=== PATIENT | male | born 1955 | race Caucasian/White ===

== ENCOUNTER 2018-08-29 14:47 | Emergency (ER) | payer MEDICARE, OTHER ==
[~2018-08-29] VITALS: Ht 182.9 cm; Wt 96.2 kg
[2018-08-29] MEDS ORDERED: PERCOCET 5-3251 EACH PO (16:59)
== END 2018-08-29 17:06 | disposition home or self-care (01) ==
LOC: ED 14:47
DX: S63.635A Sprain of interphalangeal joint of left ring finger, initial encounter (principal); W01.0XXA Fall on same level from slipping, tripping and stumbling without subsequent striking against object, initial encounter; Y93.01 Activity, walking, marching and hiking
CPT/HCPCS: 73140; 99283

== ENCOUNTER 2019-08-29 01:43 | Emergency (ER) | payer MEDICARE, OTHER ==
[~2019-08-29] VITALS: Ht 182.9 cm; Wt 96.2 kg
[~2019-08-29 01:43] MED LIST: PERCOCET 5-3251 EACH PO
[2019-08-29] MEDS ORDERED: LOSARTAN POTASS50 MG PO (02:00)
[2019-08-29] MEDS ORDERED: HYDROCHLOROTH12.5 MG PO (02:01)
[2019-08-29] MEDS ORDERED: PERCOCET 5-3251 EACH PO (02:04)
== END 2019-08-29 04:00 | disposition home or self-care (01) ==
LOC: ED 01:43
DX: R10.9 Unspecified abdominal pain (principal); I10 Essential (primary) hypertension; Z88.7 Allergy status to serum and vaccine; Z79.899 Other long term (current) drug therapy
CPT/HCPCS: 74177; 80053; 81001; 83690; 85025; 96360; 99284-25; J7030

== ENCOUNTER 2019-11-29 04:27 | Emergency (ER) | payer MEDICARE, OTHER ==
[~2019-11-29] VITALS: Ht 182.9 cm; Wt 96.2 kg
--- OUTSIDE RECORDS SUMMARY | ~2019-11-29 | XMS | Encounter Summary ---
Demographics + + + | Address | [address] | | | [place] [address] | + + + | Home Phone | | + + + | Preferred Language | Unknown | + + + | Marital Status | | + + + | Protestant Affiliation | Unknown | + + + | Race | Unknown | + + + | Ethnic Group | Unknown | + + + Author + + + | Author | [facility] | | | and [place] | + + + | Organization | [facility] | | | and [place] | + + + | Address | Unknown | + + + | Phone | Unavailable | + + + Support + + +---------+ + | Name | Relationship | Address | Phone | + + +---------+ + | Obie Maciel | ECON | Unknown | | + + +---------+ + Care Team Providers + +------+ + | Care Mold Cutting Machine Operator Name | Role | Phone | + +------+ + | Edgard Echevarria MD | PCP | | + +------+ + Encounter Details +--------+ + + + + | Date | Type | Department | Care Team | Description | +--------+ + + + + | 08/09/ | Emergency | [facility] | | Strain of Thoracic | | 2010 | | [facility] | | Region | | | | [address] | | | | | | [place] | | | | | | [address] | | | | | | [phone] | | | +--------+ + + + + Social History + +-------+ +--------+------+ | Tobacco Use | Types | Packs/Day | Years | Date | | | | | Used | | + +-------+ +--------+------+ | Never Smoker | | | | | + +-------+ +--------+------+ + + + | Sex Assigned at | Date Recorded | | | | + + + | Not on file | | + + + + + + + | Job Start Date | Occupation | Industry | + + + + | Not on file | Not on file | Not on file | + + + + + + + + | Travel History | Travel Start | Travel End | + + + + + + | No recent travel history available. | + + documented as of this encounter Plan of Treatment Not on filedocumented as of this encounter Procedures + +--------+ + + + | Procedure Name | Priori | Date/Time | Associated Diagnosis | Comments | | | ty | | | | + +--------+ + + + | CT ABDOMEN PELVIS WO | Routin | 08/09/2011 | | Results for this | | CONTRAST | e | 4:34 AM | | procedure are in the | | | | PDT | | results section. | + +--------+ + + + documented in this encounter Results CT Abdomen Pelvis wo Contrast (08/09/2011 4:34 AM PDT) + + | Specimen | + + | | + + + + + | Impressions | Performed At | + + + | 1. Renal or ureteral calculi. 2. Nonspecific, somewhat localized | | | appearing, mesenteric fat-stranding, as described. This likely | | | reflects a reactive inflammatory process. A much less likely, | | | though possible, consideration is lymphoma. Consider obtaining a | | | limited followup examination to ensure resolution in approximately 6 | | | months. Dictated by: NILES LOVELACE Dictated: | | | 08/09/2011 04:49:34 Job: [id number] | | + + + + + + | Narrative | Performed At | + + + | NONCONTRAST-ENHANCED CT OF THE ABDOMEN AND PELVIS TECHNIQUE: | | | Using a multidetector scanner, axial images were acquired from the | | | diaphragm through the pubic symphysis. HISTORY: Left flank pain, | | | no hematuria. COMPARISON: Outside CT chest 10/26/2008. | | | FINDINGS: Within the visualized lower chest, a couple band-like | | | opacities are seen within the left lower lobe, likely reflecting areas | | | of scarring or atelectasis. Allowing for limitations of this | | | noncontrast examination, the liver, the spleen, the pancreas, the | | | gallbladder and the adrenal glands appear normal. The kidneys | | | appear relatively unremarkable. There is minimal bilateral | | | perinephric fat-stranding. No abnormal calcifications are seen within | | | either kidney or along the course of either ureter. There is no | | | pelvic caliectasis or ureterectasis. The bladder appears | | | unremarkable. An area of mild fat-stranding is seen within the | | | central and left aspects of the mesentery, surrounding a branch of | | | the superior mesenteric vein. Lymph nodes within this region are more | | | prominent than elsewhere but remain relatively small and within | | | normal limits for size. Allowing for the limitations of the lack | | | of enteric contrast, small and large bowel appear unremarkable. The | | | appendix is not visualized, but no abnormal inflammatory changes are | | | seen in the region of the cecum. | | + + + + + | Procedure Note | + + | Jayme, Rad Conversion - 05/16/2019 12:31 PM PDT NONCONTRAST-ENHANCED CT OF THE ABDOMEN | | AND PELVIS TECHNIQUE: Using a multidetector scanner, axial images were acquiredfrom the | | diaphragm through the pubic symphysis. HISTORY: Left flank pain, no hematuria. | | COMPARISON: Outside CT chest 10/26/2008. FINDINGS: Within the visualized lower chest, a | | couple band-likeopacities are seen within the left lower lobe, likely reflecting areasof | | scarring or atelectasis. Allowing for limitations of thisnoncontrast examination, the | | liver, the spleen, the pancreas, thegallbladder and the adrenal glands appear normal. | | The kidneys appear relatively unremarkable. There is minimal bilateralperinephric | | fat-stranding. No abnormal calcifications are seen withineither kidney or along the | | course of either ureter. There is no pelviccaliectasis or ureterectasis. The bladder | | appears unremarkable. An area of mild fat-stranding is seen within the central and | | leftaspects of the mesentery, surrounding a branch of the superiormesenteric vein. Lymph | | nodes within this region are more prominentthan elsewhere but remain relatively small | | and within normal limitsfor size. Allowing for the limitations of the lack of enteric | | contrast, smalland large bowel appear unremarkable. The appendix is not visualized,but | | no abnormal inflammatory changes are seen in the region of thececum. IMPRESSION: 1. | | Renal or ureteral calculi.2. Nonspecific, somewhat localized appearing, | | mesentericfat-stranding, as described. This likely reflects a reactiveinflammatory | | process. A much less likely, though possible,consideration is lymphoma. Consider | | obtaining a limited followupexamination to ensure resolution in approximately 6 months. | | Dictated by: NILES LOVELACEDictated: 08/09/2011 04:49:34 Job: [id number] | |aspects of the mesentery, surrounding a branch of the superior | |mesenteric vein. Lymph nodes within this region are more prominent | |than elsewhere but remain relatively small and within normal limits | |for size. | | | |Allowing for the limitations of the lack of enteric contrast, small | |and large bowel appear unremarkable. The appendix is not visualized, | |but no abnormal inflammatory changes are seen in the region of the | |cecum. | | | |IMPRESSION: | | | |1. Renal or ureteral calculi. | |2. Nonspecific, somewhat localized appearing, mesenteric | |fat-stranding, as described. This likely reflects a reactive | |inflammatory process. A much less likely, though possible, | |consideration is lymphoma. Consider obtaining a limited followup | |examination to ensure resolution in approximately 6 months. | | | | Dictated by: NILES LOVELACE | |Dictated: 08/09/2011 04:49:34 | | Job: [id number] | + + documented in this encounter Visit Diagnoses + + | Diagnosis | + + | Strain of thoracic region Sprain of thoracic region | + + documented in this encounter"
--- OUTSIDE RECORDS SUMMARY | ~2019-11-29 | XMS | Encounter Summary ---
Demographics + + + | Address | [address] | | | [place] [address] | + + + | Home Phone | | + + + | Preferred Language | Unknown | + + + | Marital Status | | + + + | Anglican Affiliation | Unknown | + + + | Race | Unknown | + + + | Ethnic Group | Unknown | + + + Author + + + | Author | [facility] | | | and [place] | + + + | Organization | [facility] | | | and [place] [...] Team Providers + +------+ + | Care Wood Borer Name | Role | Phone | + +------+ + | Edgard Echevarria MD | PCP | | + +------+ + Encounter Details +--------+ + + + + | Date | Type | Department | Care Team | Description | +--------+ + + + + | 08/28/ | Hospital | [facility] | Conversion | Positive PPD | | 2010 | Encounter | XRAY [address] | Transaction, | | | | | [place], [place] | Provider Unknown | | | | | [address] | [phone] | | | | | [phone] | | | +--------+ + + + [...] | + +--------+ + + + | XR CHEST 2 VIEWS | Routin | 08/28/2011 | | Results for this | | | e | 2:31 PM | | procedure are in the | | | | PDT | | results section. | + +--------+ + + + documented in this encounter Results XR Chest 2 Vws (08/28/2011 2:31 PM PDT) + + | Specimen | + + | | + + + + + | Impressions | Performed At | + + + | No evidence of chronic or active TB. Dictated by: | | | MERRICK DOOLEY Dictated: 08/28/2011 14:38:41 Job: [id number] | | + + + + + + | Narrative | Performed At | + + + | EXAMINATION: Chest, PA and lateral views DATE: Aug 28, 2011 | | | 2:31:00 PM. HISTORY: Positive PPD COMPARISONS: CT chest dated | | | 10/26/2008. FINDINGS: Normal lung volumes. Lungs clear. | | | Paratracheal and perihilar contours within normal limits. No | | | suspicious pulmonary nodularity or consolidation. Thoracic spine | | | osteopenia without compression fracture. | | + + + + + | Procedure Note | + + | Jayme, Rad Conversion - 05/16/2019 12:31 PM PDT EXAMINATION: Chest, PA and lateral | | views DATE: Aug 28, 2011 2:31:00 PM. HISTORY: Positive PPD COMPARISONS: CT chest dated | | 10/26/2008. FINDINGS: Normal lung volumes. Lungs clear. Paratracheal and perihilar | | contourswithin normal limits. No suspicious pulmonary nodularity orconsolidation. | | Thoracic spine osteopenia without compression fracture. IMPRESSION: No evidence of | | chronic or active TB. Dictated by: MERRICK DOOLEYDictated: 08/28/2011 14:38:41 | | Job: [id number] | | | |FINDINGS: | | | |Normal lung volumes. Lungs clear. Paratracheal and perihilar contours | |within normal limits. No suspicious pulmonary nodularity or | |consolidation. Thoracic spine osteopenia without compression fracture. | | | |IMPRESSION: | | No evidence of chronic or active TB. 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
--- OUTSIDE RECORDS SUMMARY | ~2019-11-29 | XMS | Encounter Summary ---
Demographics + + + | Address | [address] | | | [place] [address] | + + + | Home Phone | | + + + | Preferred Language | Unknown | + + + | Marital Status | | + + + | Latter-Day Affiliation | Unknown | + + + | Race | Unknown | + + + | Ethnic Group | Unknown | + + + Author + + + | Author | [facility] | | | and [place] | + + + | Organization | [facility] | | | and [place] | [...] Team Providers + +------+ + | Care Client Relationship Executive Name | Role | Phone | + +------+ + | Edgard Echevarria MD | PCP | | + +------+ + Encounter Details +--------+ + + + + | Date | Type | Department | Care Team | Description | +--------+ + + + + | 02/14/ | Hospital | [facility] | Conversion | MS (Multiple | | 2008 | Encounter | [facility] | Transaction, | Sclerosis) (HCC) | | | | [place], [place] | Provider Unknown | | | | | [address] | [phone] | | | | | [phone] | | | +--------+ + + + + Social History + +-------+ +--------+------+ | Tobacco Use | Types | Packs/Day | Years | Date | | | | | Used | | + +-------+ +--------+------+ | Never Assessed | | | | | + +-------+ [...] | + +--------+ + + + | MRI CERVICAL SPINE W | Routin | 02/14/2009 | | Results for this | | WO CONTRAST | e | 6:27 PM | | procedure are in the | | | | PDT | | results section. | + +--------+ + + + documented in this encounter Results MRI Cervical Spine w wo Contrast (02/14/2009 6:27 PM PDT) + + | Specimen | + + | | + + + + + | Impressions | Performed At | + + + | Degenerative changes and minimal listhesis as described, findings | | | are most significant at C4-5 and C5-6. Based on imaging findings, | | | correlation with a left C5 and bilateral C6 radiculopathy is | | | suggested. Dictated by: MABLE VACA Dictated: 02/15/2009 | | | 09:47:40 Job: [id number] | | + + + + + + | Narrative | Performed At | + + + | MRI OF THE CERVICAL SPINE WITH AND WITHOUT CONTRAST: Clinical | | | History: Paresthesias, numbness, headache, "feels like a tornado". | | | Comparison: No prior imaging of the cervical spine. | | | Technique: Images are obtained at 3 Ade. Multiple sequences are | | | acquired: sagittal T2, sagittal T1 fat saturated, sagittal T2 fat | | | saturated, axial T1 FLAIR post contrast, sagittal T1 FLAIR, axial 2D | | | merge, sagittal T1 FLAIR. Findings: Evaluation of alignment | | | demonstrates minimal, approximately 1 mm of retrolisthesis of C4 on | | | C5, correlation with flexion and extension views could be considered. | | | C0-C1, C1-2 and dens basion alignment are normal. Evaluation | | | of the soft tissues of the neck show no adenopathy or masses. No | | | pathologic marrow replacement is identified. No abnormal | | | enhancement is identified on post contrast imaging. Findings by | | | Disc Level: C2-3: Mild disc height loss and disc desiccation | | | without significant canal or foraminal stenosis. C3-4: Mild | | | disc height loss and disc desiccation, no significant canal or | | | foraminal stenosis. C4-5: Mild disc height loss and disc | | | desiccation associated with mild right and mild to moderate left | | | sided foraminal stenosis. Correlation with a left C5 radiculopathy | | | is suggested. There is mild canal stenosis related to central disc | | | and osteophyte complex. C5-6: Central disc and osteophyte | | | complex and bilateral uncovertebral joint hypertrophy and facet | | | arthropathy overall produces mild to moderate canal stenosis and at | | | least moderate bilateral foraminal stenosis. Correlation with a | | | bilateral C6 radiculopathy is suggested. C6-7: Central disc and | | | osteophyte complex mildly narrows the canal, there is minimal to mild | | | bilateral foraminal stenosis associated with bilateral facet | | | arthropathy. C7-T1: No significant canal or foraminal stenosis. | | | | | + + + + + | Procedure Note | + + | Jayme, Rad Conversion - 05/16/2019 9:57 PM PDT MRI OF THE CERVICAL SPINE WITH AND | | WITHOUT CONTRAST: Clinical History: Paresthesias, numbness, headache, "feels like | | atornado". Comparison: No prior imaging of the cervical spine. Technique: Images are | | obtained at 3 Ade. Multiple sequences areacquired: sagittal T2, sagittal T1 fat | | saturated, sagittal T2 fatsaturated, axial T1 FLAIR post contrast, sagittal T1 FLAIR, | | axial 2Dmerge, sagittal T1 FLAIR. Findings: Evaluation of alignment demonstrates | | minimal, approximately 1 mm ofretrolisthesis of C4 on C5, correlation with flexion and | | extensionviews could be considered. C0-C1, C1-2 and dens basion alignment are normal. | | Evaluation of the soft tissues of the neck show no adenopathy ormasses. No pathologic | | marrow replacement is identified. No abnormalenhancement is identified on post contrast | | imaging. Findings by Disc Level: C2-3: Mild disc height loss and disc desiccation | | without significantcanal or foraminal stenosis. C3-4: Mild disc height loss and disc | | desiccation, no significantcanal or foraminal stenosis. C4-5: Mild disc height loss and | | disc desiccation associated with mildright and mild to moderate left sided foraminal | | stenosis. Correlationwith a left C5 radiculopathy is suggested. There is mild | | canalstenosis related to central disc and osteophyte complex. C5-6: Central disc and | | osteophyte complex and bilateral uncovertebraljoint hypertrophy and facet arthropathy | | overall produces mild tomoderate canal stenosis and at least moderate bilateral | | foraminalstenosis. Correlation with a bilateral C6 radiculopathy is suggested. C6-7: | | Central disc and osteophyte complex mildly narrows the canal,there is minimal to mild | | bilateral foraminal stenosis associated withbilateral facet arthropathy. C7-T1: No | | significant canal or foraminal stenosis. IMPRESSION: Degenerative changes and minimal | | listhesis as described, findings aremost significant at C4-5 and C5-6. Based on imaging | | findings,correlation with a left C5 and bilateral C6 radiculopathy issuggested. | | Dictated by: MABLE ALEJANDROHDictated: 02/15/2009 09:47:40 Job: [id number] | | | |C2-3: Mild disc height loss and disc desiccation without significant | |canal or foraminal stenosis. | | | |C3-4: Mild disc height loss and disc desiccation, no significant | |canal or foraminal stenosis. | | | |C4-5: Mild disc height loss and disc desiccation associated with mild | |right and mild to moderate left sided foraminal stenosis. Correlation | |with a left C5 radiculopathy is suggested. There is mild canal | |stenosis related to central disc and osteophyte complex. | | | |C5-6: Central disc and osteophyte complex and bilateral uncovertebral | |joint hypertrophy and facet arthropathy overall produces mild to | |moderate canal stenosis and at least moderate bilateral foraminal | |stenosis. Correlation with a bilateral C6 radiculopathy is suggested. | | | |C6-7: Central disc and osteophyte complex mildly narrows the canal, | |there is minimal to mild bilateral foraminal stenosis associated with | |bilateral facet arthropathy. | | | |C7-T1: No significant canal or foraminal stenosis. | | | |IMPRESSION: | |Degenerative changes and minimal listhesis as described, findings are | |most significant at C4-5 and C5-6. Based on imaging findings, | |correlation with a left C5 and bilateral C6 radiculopathy is | |suggested. | | Dictated by: MABLE VACA | |Dictated: 02/15/2009 09:47:40 | | Job: [id number] | + + documented in this encounter Visit Diagnoses + + | Diagnosis | + + | MS (multiple sclerosis) (HCC) Multiple sclerosis | + + documented in this encounter
--- OUTSIDE RECORDS SUMMARY | ~2019-11-29 | XMS | Encounter Summary ---
Demographics + + + | Address | [address] | | | [place] [address] | + + + | Home Phone | | + + + | Preferred Language | Unknown | + + + | Marital Status | | + + + | Anglican Affiliation | Unknown | + + + | Race | Unknown | + + + | Ethnic Group | Unknown | + + + Author + + + | Author | [facility] | | | and [place] | + + + | Organization | [facility] | | | and [place] | [...] Team Providers + +------+ + | Care Private Wealth Advisor Name | Role | Phone | + +------+ + | Edgard Echevarria MD | PCP | | + +------+ + Encounter Details +--------+ + + + + | Date | Type | Department | Care Team | Description | +--------+ + + + + | 12/30/ | Hospital | [facility] | Conversion | Seizures (HCC) | | 2008 | Encounter | [facility] | Transaction, | | | | | [facility] | Provider Unknown | | | | | [address] | | | | | | [place], [place] | (Fax) | | | | | [address] | | | | | | [phone] | | | +--------+ + + + [...] Not on filedocumented as of this encounter Visit Diagnoses + + | Diagnosis | + + | Seizures (HCC) Other convulsions | + + documented in this encounter"
--- OUTSIDE RECORDS SUMMARY | ~2019-11-29 | XMS | Encounter Summary ---
Demographics + + + | Address | [address] | | | [place] [address] | + + + | Home Phone | | + + + | Preferred Language | Unknown | + + + | Marital Status | | + + + | Denominational Affiliation | Unknown | + + + | Race | Unknown | + + + | Ethnic Group | Unknown | + + + Author + + + | Author | [facility] | | | and [place] | + + + | Organization | [facility] | | | and [place] [...] Team Providers + +------+ + | Care General Assignment Reporter Name | Role | Phone | + +------+ + | Edgard Echevarria MD | PCP | | + +------+ + Encounter Details +--------+ + + + + | Date | Type | Department | Care Team | Description | +--------+ + + + + | 11/19/ | [facility] | [facility] | Conversion | Personal History of | | 2007 | Encounter | MEDICAL PROCEDURES | Transaction, | Colonic Polyps | | | | [address] | Provider Unknown | | | | | [place], [place] | [phone] | | | | | [address] | | | | | | [phone] | | | +--------+ + + + [...] + | Diagnosis | + + | Personal history of colonic polyps | + + documented in this encounter"
--- OUTSIDE RECORDS SUMMARY | ~2019-11-29 | XMS | Encounter Summary ---
Demographics + + + | Address | [address] | | | [place] [address] | + + + | Home Phone | | + + + | Preferred Language | Unknown | + + + | Marital Status | | + + + | Christian Affiliation | Unknown | + + + | Race | Unknown | + + + | Ethnic Group | Unknown | + + + Author + + + | Author | [facility] | | | and [place] | + + + | Organization | [facility] | | | and [place] [...] Team Providers + +------+ + | Care Molder Operator Name | Role | Phone | + +------+ + PCP | Unavailable | + +------+ + Encounter Details +--------+ + + + + | Date | Type | Department | Care Team | Description | +--------+ + + + + | 01/08/ | Emergency | [facility] | [facility] | | | 1998 | | [facility] | [facility] [address] | | | | | [address] | [place] | | | | | [place] | [address] | | | | | [address] | [phone] | | | | | [phone] | | | +--------+ + + + [...] filedocumented as of this encounter Visit Diagnoses Not on filedocumented in this encounter"
--- OUTSIDE RECORDS SUMMARY | ~2019-11-29 | XMS | Encounter Summary ---
Demographics + + + | Address | [address] | | | [place] [address] | + + + | Home Phone | | + + + | Preferred Language | Unknown | + + + | Marital Status | | + + + | Jehovah'S Witness Affiliation | Unknown | + + + | Race | Unknown | + + + | Ethnic Group | Unknown | + + + Author + + + | Author | [facility] | | | and [place] | + + + | Organization | [facility] | | | and [place] [...] Team Providers + +------+ + | Care Director Emergency Department Name | Role | Phone | + +------+ + | Edgard Echevarria MD | PCP | | + +------+ + Encounter Details +--------+ + + + + | Date | Type | Department | Care Team | Description | +--------+ + + + + | 06/23/ | Hospital | [facility] | [place], | | | 2002 | Encounter | [facility] | | | | | | GENERIC CONV [address] | | | | | | [place], | | | | | | [place] [address] | | | | | | [phone] | | | +--------+ + + + [...]
--- OUTSIDE RECORDS SUMMARY | ~2019-11-29 | XMS | Encounter Summary ---
Demographics + + + | Address | [address] | | | [place] [address] | + + + | Home Phone | | + + + | Preferred Language | Unknown | + + + | Marital Status | | + + + | Buddhist Affiliation | Unknown | + + + | Race | Unknown | + + + | Ethnic Group | Unknown | + + + Author + + + | Author | [facility] | | | and [place]un[place] | + + + | Organization | [facility] | | [...] Team Providers + +------+ + | Care Hat Blocker Name | Role | Phone | + +------+ + | Edgard Echevarria MD | PCP | | + +------+ + Encounter Details +--------+ + + + + | Date | Type | Department | Care Team | Description | +--------+ + + + + | 08/17/ | [facility] | [facility] | Emeka Salamanca MD | Orchalgia; | | 2019 | Encounter | ULTRASOUND [address] | [address] | Spermatocele | | | | [address] | [address] [place], | | | | | [place] | [place] [address] | | | | | [address] | | | | | | [phone] | (Fax) | | +--------+ + + + + [...] + + documented as of this encounter Medications at Time of Discharge + + + +---------+--------+ + | Medication | Sig | Dispensed | Refills | Start | End Date | | | | | | Date | | + + + +---------+--------+ + | | Take 12.5 mg by | | 0 | | | | hydroCHLOROthiazide | mouth Daily. | | | | | | (HYDRODIURIL) 12.5 | | | | | | | MG tablet | | | | | | + + + +---------+--------+ + | losartan (COZAAR) | Take 50 mg by mouth | | 0 | | | | 50 mg tablet | Daily. | | | | | + + + +---------+--------+ + documented as of this encounter Plan of Treatment Not on filedocumented as of this encounter Procedures + +--------+ + + + | Procedure Name | Priori | Date/Time | Associated Diagnosis | Comments | | | ty | | | | + +--------+ + + + | US SCROTUM AND | Routin | 08/17/2019 | Orchalgia | Results for this | | TESTICLES | e | 11:45 AM | Spermatocele | procedure are in the | | | | PDT | | results section. | + +--------+ + + + documented in this encounter Results US Scrotum And Testicles (08/17/2019 11:45 AM PDT) + + | Specimen | + + | | + + + + + | Narrative | Performed At | + + + | ULTRASOUND SCROTUM CLINICAL INFORMATION: Right scrotal | [facility] | | swelling present for 2.5 years. 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 COMPARISON: None PROCEDURE: Evaluation | | | of the scrotum. FINDINGS: Right testicle: 5.3 x 2.4 x 3.0 cm. | | | Small area of tubular ectasia of the rete testes.. 1.5 x 1.9 x 2.0 | | | cm right epididymal head cyst. Tubular cystic areas in the right | | | epididymis body. Small right hydrocele Left testicle: 4.7 x 2.3 x | | | 2.9 cm. No testicular mass. Left epididymis appears normal. No | | | extra-testicular mass or pathologic fluid collection. Normal color | | | Doppler flow is present in both testicles IMPRESSION: 2 cm right | | | epididymal head cyst/spermatocele. Normal testicles | | | Signed by: Prudencio Kruger Leslie Sign Date/Time: 08/17/2019 12:35 PM | | | | | + + + + + | Procedure Note | + + | Jayme, Rad Results In - 08/17/2019 12:39 PM PDT | | ULTRASOUND SCROTUM | | | | CLINICAL INFORMATION: | | Right scrotal swelling present for 2.5 years. Status post 3 times | | bilateral spermatocele repair. | | | | COMPARISON: | | None | | | | PROCEDURE: | | Evaluation of the scrotum. | | | | FINDINGS: | | Right testicle: 5.3 x 2.4 x 3.0 cm. Small area of tubular ectasia of | | the rete testes.. 1.5 x 1.9 x 2.0 cm right epididymal head cyst. | | Tubular cystic areas in the right epididymis body. Small right | | hydrocele | | Left testicle: 4.7 x 2.3 x 2.9 cm. No testicular mass. Left epididymis | | appears normal. No extra-testicular mass or pathologic fluid collection. | | | | Normal color Doppler flow is present in both testicles | | | | IMPRESSION: | | 2 cm right epididymal head cyst/spermatocele. Normal testicles | | | | | | | | Signed by: Prudencio Kruger Leslie | | Sign Date/Time: 08/17/2019 12:35 PM | + + + +---------+ + + | Performing | Address | City/State/Zipcode | Phone Number | | Organization | | | | + +---------+ + + | [facility] | | | | + +---------+ + + documented in this encounter Visit Diagnoses + + | Diagnosis | + + | Orchalgia Unspecified disorder of male genital organs | + + | Spermatocele | + + documented in this encounter"
--- OUTSIDE RECORDS SUMMARY | ~2019-11-29 | XMS | Encounter Summary ---
Demographics + + + | Address | [address] | | | [place] [address] | + + + | Home Phone | | + + + | Preferred Language | Unknown | + + + | Marital Status | | + + + | Buddhism Affiliation | Unknown | + + + | Race | Unknown | + + + | Ethnic Group | Unknown | + + + Author + + + | Author | [facility] | | | and [place]un[place] | + + + | Organization | [facility] | | | and [...] Team Providers + +------+ + | Care Digital Solutions Architect Name | Role | Phone | + [...] [place], | | | | | | [place] [address] | | | | | | [phone] | | | +--------+ + + + [...]
--- OUTSIDE RECORDS SUMMARY | ~2019-11-29 | XMS | Encounter Summary ---
Demographics + + + | Address | [address] | | | [place] [address] | + + + | Home Phone | | + + + | Preferred Language | Unknown | + + + | Marital Status | | + + + | Mormonism Affiliation | Unknown | + + + | Race | Unknown | + + + | Ethnic Group | Unknown | + + + Author + + + | Author | [facility] | | | and [place] | + + + | Organization | [facility] | | | and [place]un[place] | [...] Team Providers + +------+ + | Care Lead Carpenter Name | Role | Phone | + +------+ + | Edgard Echevarria MD | PCP | | + +------+ + Encounter Details +--------+ + + + + | Date | Type | Department | Care Team | Description | +--------+ + + + + | 08/28/ | Hospital | [facility] | Conversion | Positive PPD | | 2010 | Encounter | X[address] | Transaction, | | | | | [place], [place] | Provider Unknown | | | | | [address] | [phone] | | | | | [phone] | | | +--------+ + + + [...] | MERRICK DOOLEY Dictated: 08/28/2011 14:38:41 Job: [id number] | | + + + + + [...] MERRICK DOOLEYDictated: 08/28/2011 14:38:41 | | Job: [id number] | | | |FINDINGS: | | | [...] | |Dictated: 08/28/2011 14:38:41 | | Job: [id number] | + + documented in this encounter Visit Diagnoses + + | Diagnosis | + + | 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
--- OUTSIDE RECORDS SUMMARY | ~2019-11-29 | XMS | Encounter Summary ---
Demographics + + + | Address | [address] | | | [place] [address] | + + + | Home Phone | | + + + | Preferred Language | Unknown | + + + | Marital Status | | + + + | Holiness Affiliation | Unknown | + + + | Race | Unknown | + + + | Ethnic Group | Unknown | + + + Author + + + | Author | [facility] | | | and aJunana | + + + | Organization | [facility] | | | and Jaunana [...] Team Providers + +------+ + | Care Third Steel Pourer Name | Role | Phone | + +------+ + | Edgard Echevarria MD | PCP | | + +------+ + Encounter Details +--------+ + + + + | Date | Type | Department | Care Team | Description | +--------+ + + + + | 12/19/ | Hospital | [facility] | Conversion | Stroke (HCC) | | 2008 | Encounter | [facility] [address] | Transaction, | | | | | [place] [place], [place] | Provider Unknown | | | | | [address] | [phone] | | | | | [phone] | | | +--------+ + + + [...] + +--------+ + + + | MRI BRAIN W WO | Routin | 12/19/2008 | | Results for this | | CONTRAST | e | 4:58 PM | | procedure are in the | | | | PST | | results section. | + +--------+ + + + documented in this encounter Results MRI Brain w wo Contrast (12/19/2008 4:58 PM PST) + + | Specimen | + + | | + + + + + | Impressions | Performed At | + + + | No convincing evidence of acute cortical infarct or perfusion | | | abnormality is seen, there are multiple foci of elevated T2 signal, | | | these have a scattered distribution, findings are nonspecific, they | | | are slightly greater than I would expect for the patient's age. | | | Differential would include diabetes, hypertension, small vessel | | | disease, migraine headaches may have a similar appearance. Clinical | | | correlation is suggested. Dictated by: MABLE VACA | | | Dictated: 12/19/2008 21:03:20 Job: [id number] | | + + + + + + | Narrative | Performed At | + + + | MRI OF THE BRAIN WITH AND WITHOUT CONTRAST, MR PERFUSION: | | | Clinical History: Stroke, patient has episodes where the patient was a | | | sensory input, patient indicates he is aware throughout these | | | episodes, has no lingering effects. One recent episode was associated | | | with vertigo, there is concern for vascular abnormality, including | | | stroke and vascular insufficiency. Comparison: None. | | | Technique: Images are obtained at 3 Ade. Multiple sequences are | | | acquired: sagittal T1 FLAIR, coronal T2, axial diffusion, axial T2 | | | FLAIR, axial T2 gradient, axial 3D FSPGR pre and postcontrast, | | | perfusion weighted imaging is performed with time to minimum | | | parametric map created and used in evaluation, axial T1 FLAIR | | | postcontrast, parametric map is created using postprocessing software | | | after image acquisition. Findings: Diffusion weighted imaging | | | shows no evidence of acute infarct. Perfusion imaging shows no | | | geographic areas of altered hemodynamics. T2 weighted images | | | demonstrate multiple, greater than ten, foci of scattered | | | supratentorial elevated T2 signal, no associated gradient signal | | | abnormality is identified, nor is there abnormal enhancement seen. | | | No posterior fossa lesions are identified. Evaluation of the | | | hippocampi demonstrates no definite asymmetry in terms of size or | | | signal, the current examination is not optimized for evaluation of | | | the hippocampi. Vascular flow voids are grossly unremarkable, as | | | are the dural venous sinuses. Limited evaluation of the internal | | | auditory canal shows no mass lesions, or other definite abnormality. | | | | | + + + + + | Procedure Note | + + | Jayme, Rad Conversion - 05/16/2019 9:57 PM PDT MRI OF THE BRAIN WITH AND WITHOUT | | CONTRAST, MR PERFUSION: Clinical History: Stroke, patient has episodes where the patient | | was asensory input, patient indicates he is aware throughout theseepisodes, has no | | lingering effects. One recent episode was associatedwith vertigo, there is concern for | | vascular abnormality, includingstroke and vascular insufficiency. Comparison: None. | | Technique: Images are obtained at 3 Ade. Multiple sequences areacquired: sagittal T1 | | FLAIR, coronal T2, axial diffusion, axial [id number], axial T2 gradient, axial 3D FSPGR pre | | and postcontrast,perfusion weighted imaging is performed with time to minimumparametric | | map created and used in evaluation, axial T1 FLAIRpostcontrast, parametric map is | | created using postprocessing softwareafter image acquisition. Findings: Diffusion | | weighted imaging shows no evidence of acute infarct.Perfusion imaging shows no | | geographic areas of altered hemodynamics. T2 weighted images demonstrate multiple, | | greater than ten, foci ofscattered supratentorial elevated T2 signal, no associated | | gradientsignal abnormality is identified, nor is there abnormal enhancementseen. No | | posterior fossa lesions are identified. Evaluation of the hippocampi demonstrates no | | definite asymmetry interms of size or signal, the current examination is not optimized | | forevaluation of the hippocampi. Vascular flow voids are grossly unremarkable, as are | | the dural venoussinuses. Limited evaluation of the internal auditory canal shows no | | masslesions, or other definite abnormality. IMPRESSION: No convincing evidence of acute | | cortical infarct or perfusionabnormality is seen, there are multiple foci of elevated T2 | | signal,these have a scattered distribution, findings are nonspecific, theyare slightly | | greater than I would expect for the patient's age.Differential would include diabetes, | | hypertension, small vesseldisease, migraine headaches may have a similar appearance. | | Clinicalcorrelation is suggested. Dictated by: [email or web address] ANGELO P KEOGHDictated: 12/19/2008 | | 21:03:20 Job: [id number] | |signal abnormality is identified, nor is there abnormal enhancement | |seen. | | | |No posterior fossa lesions are identified. | | | |Evaluation of the hippocampi demonstrates no definite asymmetry in | |terms of size or signal, the current examination is not optimized for | |evaluation of the hippocampi. | | | |Vascular flow voids are grossly unremarkable, as are the dural venous | |sinuses. | | | |Limited evaluation of the internal auditory canal shows no mass | |lesions, or other definite abnormality. | | | |IMPRESSION: | |No convincing evidence of acute cortical infarct or perfusion | |abnormality is seen, there are multiple foci of elevated T2 signal, | |these have a scattered distribution, findings are nonspecific, they | |are slightly greater than I would expect for the patient's age. | |Differential would include diabetes, hypertension, small vessel | |disease, migraine headaches may have a similar appearance. Clinical | |correlation is suggested. | | Dictated by: MABLE VACA | |Dictated: 12/19/2008 21:03:20 | | Job: [id number] | + + documented in this encounter Visit Diagnoses + + | Diagnosis | + + | Stroke (HCC) Unspecified cerebral artery occlusion with cerebral infarction | + + documented in this encounter"
--- OUTSIDE RECORDS SUMMARY | ~2019-11-29 | XMS | Encounter Summary ---
Demographics + + + | Address | [address] | | | [place] [address] | + + + | Home Phone | | + + + | Preferred Language | Unknown | + + + | Marital Status | | + + + | Adventism Affiliation | Unknown | + + + | Race | Unknown | + + + | Ethnic Group | Unknown | + + + Author + + + | Author | [facility] | | | and [place] | + + + | Organization | [facility] | | | and [place] | [...] Team Providers + +------+ + | Care Care Management Associate Name | Role | Phone | + [...] Sclerosis) (HCC) | | | | [place], [place] | Provider Unknown | | | | | [address] | [phone] | | | | | [phone] | | | +--------+ + + + [...] Dictated: 02/15/2009 | | | 09:47:40 Job: [id number] | | + + + + + [...] Dictated by: MABLE ALEJANDROHDictated: 02/15/2009 09:47:40 Job: [id number] | | | |C2-3: Mild disc height [...] | |Dictated: 02/15/2009 09:47:40 | | Job: [id number] | + + documented in this encounter Visit Diagnoses + + | Diagnosis | + + | MS (multiple sclerosis) (HCC) Multiple sclerosis | + + documented in this encounter
--- OUTSIDE RECORDS SUMMARY | ~2019-11-29 | XMS | Encounter Summary ---
Demographics + + + | Address | [address] | | | [place] [address] | + + + | Home Phone | | + + + | Preferred Language | Unknown | + + + | Marital Status | | + + + | Cheondoism Affiliation | Unknown | + + + | Race | Unknown | + + + | Ethnic Group | Unknown | + + + Author + + + | Author | [facility] | | | and [place]un[place] | + + + | Organization | [facility] | | | and Jaunana [...] Team Providers + +------+ + | Care Investment Fund Manager Name | Role | Phone | + +------+ + | Edgard Echevarria MD | PCP | | + +------+ + Encounter Details +--------+ + + + + | Date | Type | Department | Care Team | Description | +--------+ + + + + | 04/27/ | Hospital | [facility] | Rc [place], | | | 2003 | Encounter | MINOR PROCEDURES | [address] | | | | | [address] | [address] [place], | | | | | [place], [place] | [place] [address] | | | | | [address] | [phone] | | | | | | | | +--------+ + + + [...]
--- OUTSIDE RECORDS SUMMARY | ~2019-11-29 | XMS | Encounter Summary ---
Demographics + + + | Address | [address] | | | [place] [address] | + + + | Home Phone | | + + + | Preferred Language | Unknown | + + + | Marital Status | | + + + | Methodist Affiliation | Unknown | + + + | Race | Unknown | + + + | Ethnic Group | Unknown | + + + Author + + + | Author | [facility] | | | and [place]un[place] | + + + | Organization | [facility] | | | and Jaunana [...] Team Providers + +------+ + | Care Unit Clerk Name | Role | Phone | + +------+ + | Edgard Echevarria MD | PCP | | + +------+ + Reason for Visit +---------+ + | Reason | Comments | +---------+ + | Results | | +---------+ + Encounter Details +--------+ + + + + | Date | Type | Department | Care Team | Description | +--------+ + + + + | 08/18/ | Telephone | [facility] | Emkea aSlamanca MD | Results | | 2019 | | URGOLOGY [place] | [address] | | | | | [address] | [address] [place], | | | | | [place] | [place] [address] | | | | | [address] | | | | | | | (Fax) | | +--------+ + + [...]
--- OUTSIDE RECORDS SUMMARY | ~2019-11-29 | XMS | Encounter Summary ---
Demographics + + + | Address | [address] | | | [place] [address] | + + + | Home Phone | | + + + | Preferred Language | Unknown | + + + | Marital Status | | + + + | Mormonism Affiliation | Unknown | + + + | Race | Unknown | + + + | Ethnic Group | Unknown | + + + Author + + + | Author | [facility] | | | and [place]un[place] | + + + | Organization | [facility] | | | and [...] Team Providers + +------+ + | Care Track Helper Name | Role | Phone | + +------+ + | Edgard Echevarria MD | PCP | | + +------+ + Encounter Details +--------+ + + + + | Date | Type | Department | Care Team | Description | +--------+ + + + + | 05/19/ | Hospital | [facility] | Rc Anne, | | | 2003 | Encounter | SYSTEM GENERIC OP | [address] | | | | | CONVERSION [address] | [address] [place], | | | | | [address] [place], [place] | [place] [address] | | | | | [address] | [phone] | | | | | [phone] | | | +--------+ + + + [...]
--- OUTSIDE RECORDS SUMMARY | ~2019-11-29 | XMS | Encounter Summary ---
Demographics + + + | Address | [address] | | | [place] [address] | + + + | Home Phone | | + + + | Preferred Language | Unknown | + + + | Marital Status | | + + + | Christianity Affiliation | Unknown | + + + | Race | Unknown | + + + | Ethnic Group | Unknown | + + + Author + + + | Author | [facility] | | | and [place]un[place] | + + + | Organization | [facility] | | | and Jaunana [...] Team Providers + +------+ + | Care Steam Plant Records Clerk Name | Role | Phone | [...] Transaction, | | | | | [place], [place] | Provider Unknown | | | | | [address] | [phone] | | | | | [phone] | | | +--------+ + + + [...] | | | Dictated: 12/19/2008 21:03:20 Job: [id number] | | + + + + + [...] | FLAIR, coronal T2, axial diffusion, axial [id number], axial T2 gradient, axial 3D FSPGR pre [...] P KEOGHDictated: 12/19/2008 | | 21:03:20 Job: [id number] | |signal abnormality is identified, nor is [...] | |Dictated: 12/19/2008 21:03:20 | | Job: [id number] | + + documented in this encounter Visit Diagnoses + + | Diagnosis | + + | Stroke (HCC) Unspecified cerebral artery occlusion with cerebral infarction | + + documented in this encounter"
--- OUTSIDE RECORDS SUMMARY | ~2019-11-29 | XMS | Encounter Summary ---
Demographics + + + | Address | [address] | | | [place] [address] | + + + | Home Phone | | + + + | Preferred Language | Unknown | + + + | Marital Status | | + + + | Restorationism Affiliation | Unknown | + + + | Race | Unknown | + + + | Ethnic Group | Unknown | + + + Author + + + | Author | [facility] | | | and Jaunana | + + + | Organization | [facility] | | | and [...] Team Providers + +------+ + | Care In School Suspension Coordinator Name | Role | Phone | + [...] [address]VE | | | | | | [place], [place] | (Fax) | | | | | [address] | | | | | | [phone] | | | +--------+ + + + [...]
--- OUTSIDE RECORDS SUMMARY | ~2019-11-29 | XMS | Encounter Summary ---
Demographics + + + | Address | [address] | | | [place] [address] | + + + | Home Phone | | + + + | Preferred Language | Unknown | + + + | Marital Status | | + + + | Oriental Orthodox Affiliation | Unknown | + + + | Race | Unknown | + + + | Ethnic Group | Unknown | + + + Author + + + | Author | [facility] | | | and Jaunana | + + + | Organization | [facility] | | | and Jaunana [...] Team Providers + +------+ + | Care Artificial Foliage Arranger Name | Role | Phone | + +------+ + PCP | Unavailable | + +------+ + Encounter Details +--------+ + + + + | Date | Type | Department | Care Team | Description | +--------+ + + + + | 10/25/ | Hospital | [facility] | Karl Almendarez D | | | 1998 | Encounter | [facility] | [address] | | | | | [address] | [place] | | | | | [place], | [address] | | | | | [place] [address] | [phone] | | | | | [phone] | | | +--------+ + + + [...]
--- OUTSIDE RECORDS SUMMARY | ~2019-11-29 | XMS | Encounter Summary ---
Demographics + + + | Address | [address] | | | [place] [address] | + + + | Home Phone | | + + + | Preferred Language | Unknown | + + + | Marital Status | | + + + | Mormonism Affiliation | Unknown | + + + | Race | Unknown | + + + | Ethnic Group | Unknown | + + + Author + + + | Author | [facility] | | | and [place]un[place] | + + + | Organization | [facility] | [...] Team Providers + +------+ + | Care Whiting Machine Operator Name | Role | Phone | + +------+ + | Edgard Echevarria MD | PCP | | + +------+ + Encounter Details +--------+ + + + + | Date | Type | Department | Care Team | Description | +--------+ + + + + | 09/15/ | Hospital | [facility] | Conversion | | | 2007 | Encounter | [facility] | Transaction, | | | | | [address] | Provider Unknown | | | | | [place], [place] | [phone] | | | | | [address] | | | | | | [phone] | | | +--------+ + + + [...]
--- OUTSIDE RECORDS SUMMARY | ~2019-11-29 | XMS | Encounter Summary ---
Demographics + + + | Address | [address] | | | [place] [address] | + + + | Home Phone | | + + + | Preferred Language | Unknown | + + + | Marital Status | | + + + | Pentecostal Affiliation | Unknown | + + + | Race | Unknown | + + + | Ethnic Group | Unknown | + + + Author + + + | Author | [facility] | | | and [place]un[place] | + + + | Organization | [facility] | | | and [...] Team Providers + +------+ + | Care Poultry Husbandman Name | Role | Phone | + +------+ + | Edgard Echevarria MD | PCP | | + +------+ + Encounter Details +--------+ + + + + | Date | Type | Department | Care Team | Description | +--------+ + + + + | 05/08/ | Hospital | [facility] | Rc Anne, | | | 2003 | Encounter | MINOR PROCEDURES | [address] [facility] | | | | | [address] | [address] [place], | | | | | [place], [place] | [place] [address] | | | | | [address] | [phone] | | | | | [phone] | | | +--------+ + + + [...]
--- OUTSIDE RECORDS SUMMARY | ~2019-11-29 | XMS | Encounter Summary ---
Demographics + + + | Address | [address] | | | [place] [address] | + + + | Home Phone | | + + + | Preferred Language | Unknown | + + + | Marital Status | | + + + | Pentecostalism Affiliation | Unknown | + + + | Race | Unknown | + + + | Ethnic Group | Unknown | + + + Author + + + | Author | [facility] | | | and [place] | + + + | Organization | [facility] | | | and Jaunana | + [...] Team Providers + +------+ + | Care Welfare Analyst Name | Role | Phone | + +------+ + | Edgard Echevarria MD | PCP | | + +------+ + Encounter Details +--------+ + + + + | Date | Type | Department | Care Team | Description | +--------+ + + + + | 11/19/ | [facility] | [facility] | Conversion | Personal History of | | 2007 | Encounter | MEDICAL PROCEDURES | Transaction, | Colonic Polyps | | | | [address] | Provider Unknown | | | | | [place], [place] | [phone] | | | | | [address] | | | | | | [phone] | | | +--------+ + + + [...]
--- OUTSIDE RECORDS SUMMARY | ~2019-11-29 | XMS | Encounter Summary ---
Demographics + + + | Address | [address] | | | [place] [address] | + + + | Home Phone | | + + + | Preferred Language | Unknown | + + + | Marital Status | | + + + | Zoroastrian Affiliation | Unknown | + + + | Race | Unknown | + + + | Ethnic Group | Unknown | + + + Author + + + | Author | [facility] | | | and [place]un[place] | + + + | Organization | [facility] | | | and [...] Team Providers + +------+ + | Care Dispatch Lead Name | Role | Phone | + +------+ + | Edgard Echevarria MD | PCP | | + +------+ + Encounter Details +--------+ + + + + | Date | Type | Department | Care Team | Description | +--------+ + + + + | 09/16/ | Hospital | [facility] | Emeka Salamanca MD | | | 2007 | Encounter | OR PREPOST OP 747 | [address] [facility] | | | | | [facility], | [address] [place], | | | | | [place] [address] | [place] [address] | | | | | [phone] | | | | | | | [...]
--- OUTSIDE RECORDS SUMMARY | ~2019-11-29 | XMS | Encounter Summary ---
Demographics + + + | Address | [address] | | | [place] [address] | + + + | Home Phone | | + + + | Preferred Language | Unknown | + + + | Marital Status | | + + + | Synagogue Affiliation | Unknown | + + + | Race | Unknown | + + + | Ethnic Group | Unknown | + + + Author + + + | Author | [facility] | | | and [place] | + + + | Organization | [facility] | | | and [place] [...] Team Providers + +------+ + | Care Engine Monitor Name | Role | Phone | + +------+ + | Edgard Echevarria MD | PCP | | + +------+ + Encounter Details +--------+ + + + + | Date | Type | Department | Care Team | Description | +--------+ + + + + | 04/27/ | Hospital | [facility] | Rc Anne, | | | 2003 | Encounter | MINOR PROCEDURES | [address] [facility] [facility] | | | | | [address] | [address] [place], | | | | | [place], [place] | [place] [address] | | | | | [address] | [phone] | | | | | | | [...]
--- OUTSIDE RECORDS SUMMARY | ~2019-11-29 | XMS | Encounter Summary ---
Demographics + + + | Address | [address] | | | [place] [address] | + + + | Home Phone | | + + + | Preferred Language | Unknown | + + + | Marital Status | | + + + | Christianity Affiliation | Unknown | + + + | Race | Unknown | + + + | Ethnic Group | Unknown | + + + Author + + + | Author | [facility] | | | and [place] | + + + | Organization | [facility] | | | and [place] | [...] Team Providers + +------+ + | Care Pastoral Worker Name | Role | Phone | + +------+ + | Edgard Echevarria MD | PCP | | + +------+ + Reason for Visit + + + | Reason | Comments | + + + | Procedure | | + + + | Follow-up | | + + + Encounter Details +--------+---------+ + + + | Date | Type | Department | Care Team | Description | +--------+---------+ + + + | 07/17/ | Office | [facility] | Emeka Salamanca MD | Orchalgia (Primary | | 2019 | Visit | UROLOGY [facility] | [address] | Dx); Spermatocele | | | | [address] | [address] [place], | | | | | [address] [place], [place] | [place] [address] | | | | | [address] | | | | | | | (Fax) | | +--------+---------+ + + + Social History + +-------+ [...] + + documented as of this encounter Patient Instructions Patient Instructions Emeka Salamanca MD - 07/17/2019 3:00 PM PDTAfter Visit Instructions: Please contact us for any results if you have not heard within one week. Follow-up: Schedule Now: Scrotal ultrasound 3 :12 PM PDT documented in this encounter Progress Notes Emeka Salamanca MD - 07/17/2019 3:00 PM PDTFormatting of this note might be different from t he original. PATIENT: Mookie King : 1955 UROLOGIC PROVIDER: Emeka Salamanca M.D. DATE: 07/17/2019 Past Medical History: Diagnosis Date ANESTHESIA Coronary Artery Disease occasional first degree avheart block Past Surgical History: Procedure Laterality Date OTHER SURGICAL HISTORY 2005 OTHER UROLOGY RENAL - SPERMATOCELE REPAIR (R) OTHER SURGICAL HISTORY COLON SURGERY VA BIOPSY OF SKIN LESION VA THROAT SURGERY PROCEDURE UNLISTED TONSILLECTOMY AND ADENOIDECTOMY Current Outpatient Medications: hydroCHLOROthiazide (HYDRODIURIL) 12.5 MG tablet, Take 12.5 mg by mouth Daily., Disp: , Rfl: losartan (COZAAR) 50 mg tablet, Take 50 mg by mouth Daily., Disp: , Rfl: Allergies not on file No family history on file. Social History Socioeconomic History Marital status: Spouse name: Not on file Number of children: Not on file Years of education: Not on file Highest education level: Not on file Social Needs Financial resource strain: Not on file Food insecurity - worry: Not on file Food insecurity - inability: Not on file Transportation needs - medical: Not on file Transportation needs - non-medical: Not on file Occupational History Not on file Tobacco Use Smoking status: Never Smoker Substance and Sexual Activity Alcohol use: Not on file Drug use: Not on file Comment: Drug use: No Sexual activity: Not on file Other Topics Concern Not on file Social History Narrative Not on file Social History Substance and Sexual Activity Drug Use Not on file Comment: Drug use: No REVIEW OF SYSTEMS: Adult health questionaire reviewed personally with patient (See adult health questionaire i n EMR) Additionally a 12 point review of systems was reviewed with the patient. Findings addresse d elsewhere are not mentioned again to avoid redundancy: Constitutional: No significant recent unexpected weight loss Neurological: No acute neurologic deficit Respiratory: No acute respiratory distress Cardiac: No acute chest pain Gastrointestinal: No acute GI obstruction or bleeding Genitourinary: No significant findings not detailed elsewhere in my HPI Hematologic: No other history of significant bleeding: Endocrine: No significant new findings Renal: No other history of renal disease: Orthopedic: No other history of current acute orthopedic disease. Skin: No acute rash ENT: No acute relevant nasal or airway compromise Opthalmic: No acute visual conditions There is no problem list on file for this patient. No results found for this or any previous visit. There are no exam notes on file for this visit. GENERAL PHYSICAL EXAMINATION: (Abnormals in bold) General: 64 y.o. male in no acute distress habitus/hygiene: normal Vital Signs: There were no vitals taken for this visit. Orientation: alert, oriented, appropriate. asks appropriate questions and demonstrates understanding. Mood/Affect: appropriate for circumstance HEENT: sclera anicteric, conjunctiva pink, no thyroid mass Skin: normal color without cyanosis, jaundice, rashes or petechia Respiratory: no respiratory distress lungs: clear to auscultation Cardiovascular: no peripheral edema regular rate and rhythm without murmur Lymphatic: no cervical, supraclavicular or inguinal lymphadenopathy Abdomen: soft, nontender, no palpable mass No CVAT no hepatosplenomegaly no evident hernias MALE GENITOURINARY EXAMINATION: (Abnormals in bold) Scrotum: Normal without noteworthy skin lesions, varicocele or mass. Spermatic cords unremarkable Testes: Smooth, symmetric, fully descended, without mass or tenderness Epididymides: Symmetric and non tender without mass or nodularity Slightly tender, fulnes s of globus major right epididymis Penis: Normal without skin lesions or plaque Meatus: Normal position and caliber, without discharge or staining UROLOGIC CHRONOLOGICAL HISTORY: 1989 Spermatocele repair [facility] 2002 2nd spermatocele repair 2007 3rd repair - contralateral Patient's Current Concerns and Narrative: Here to address a chief complaint of scrotal mass Last seen September 2008 My right testicle is 4-5 times the size of my left and the pressure is at the poit we have to do something about it The swelling began 2.5 years ago Slow Annoying now It can pull if I sit without adjusting First spermatocele repair around at the [facility] Seen before for a spermatocole, one on the left, one on the right, now the one on the right is back Early and September 2008 [facility] 2002 cycling -saw me then 2007 third repair Denies LUTS Just had my physical and my PSA is like 0.04 or 0.06 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 Orchalgia N50.819 608.9 US Scrotum And Testicles 2. Spermatocele N43.40 608.1 US Scrotum And Testicles SUMMARY: 64 y.o. man c/o right orchalgia with belief he has another spermatocele repair. He has had three spermatocele excisions, and reports each was successful. His examination shows modest fulness and tenderness of the globus major on the right We discussed ddx, role for US and monthly examination, and my uncertaintly he would benefit from a repair. We will reconsider after the US NSAIDs, positioning, etc. 30 minutes spent in face to face encounter with >50% involved in direct consultation regard ing the underlyung condition, differential diagnosis and treatment options and risks reviewe d above, After Visit Instructions: Please contact us for any results if you have not heard within one week. Follow-up: Schedule Now: Scrotal ultrasound Orders Placed This Encounter Procedures US Scrotum And Testicles Standing Status: Future Standing Expiration Date: 07/17/2020 Order Specific Question: Reason for exam: Answer: Testicular Mass Order Specific Question: What is the preferred imaging location? Answer: [facility] ([facility]) Emeka Salamanca M.D. PCP: Edgard Echevarria MD Referring MD: No referring provider defined for this encounter. documented in this encou nter Plan of Treatment Not on filedocumented as of this encounter Results US Scrotum And Testicles [...] testicles | | | Signed by: Prudencio Kruger, Carmela Sign Date/Time: 08/17/2019 12:35 PM | | [...] | Diagnosis | + + | Orchalgia - Primary Unspecified disorder of male genital organs | + + | Spermatocele | + + documented in this encounter"
--- OUTSIDE RECORDS SUMMARY | ~2019-11-29 | XMS | Clinical Summary ---
Demographics + + + | Address | [address] | | | [place] [address] | + + + | Home Phone | | + + + | Preferred Language | Unknown | + + + | Marital Status | | + + + | Christianity Affiliation | Unknown | + + + | Race | Unknown | + + + | Ethnic Group | Unknown | + + + Author + + + | Author | [facility] | | | and [place] | + + + | Organization | [facility] | | | and [...] Team Providers + +------+ + | Care Green End Worker Name | Role | Phone | + +------+ + | Edgard Echevarria MD | PCP | | + +------+ + Allergies Not on File Medications + + + +---------+------+------+-------+ | Medication | Sig | Dispensed | Refills | Star | End | Statu | | | | | | t | Date | s | | | | | | Date | | | + + + +---------+------+------+-------+ | | Take 12.5 mg by | | 0 | | | Activ | | hydroCHLOROthiazide | mouth Daily. | | | | | e | | (HYDRODIURIL) 12.5 | | | | | | | | MG tablet | | | | | | | + + + +---------+------+------+-------+ | losartan (COZAAR) | Take 50 mg by mouth | | 0 | | | Activ | | 50 mg tablet | Daily. | | | | | e | + + + +---------+------+------+-------+ Active Problems Not on file Social History + +-------+ +--------+------+ | Tobacco [...] recent travel history available. | + + Last Filed Vital Signs Not on file Plan of Treatment + + + + + | Health Maintenance | Due Date | Last Done | Comments | + + + + + | Hepatitis C | | | | | Screening | 3 | | | + + + + + | Vaccine: | | | | | Dtap/Tdap/Td (1 - | 4 | | | | Tdap) | | | | + + + + + | Colorectal Cancer | | | | | Screening | 3 | | | | (Colonoscopy) | | | | + + + + + | Vaccine: Zoster (1 | | | | | of 2) | 3 | | | + + + + + | Vaccine: | | | | | Pneumococcal 65+ (1 | 8 | | | | of 2 - PCV13) | | | | + + + + + | Adult Annual | | | | | Wellness Visit | 9 | | | + + + + + | Statin Therapy | | | | | (optimal intensity) | 9 | | | + + + + + | Vaccine: Influenza | | | | | (#1) | 9 | | | + + + + + Results Not on filefrom Last 3 Months Insurance + +--------+ +--------+ +---------+--------+ | Payer | Benefi | Subscriber | Effect | Phone | Address | Type | | | t Plan | ID | noris | | | | | | / | | Dates | | | | | | Group | | | | | | + +--------+ +--------+ +---------+--------+ | MEDICARE | MEDICA | [id number] | 07/02/20 | [phone] | | Medica | | | RE | | 18-Pre | 5 | | re | | | PART A | | sent | | | | | | AND B | | | | | | + +--------+ +--------+ +---------+--------+ | [place] | UNITED | [id number] | 07/02/20 | | | Indemn | | MEDICARE SUPPL | | | 18-Pre | | | ity | | | AMERIC | | sent | | | | | | AN | | | | | | | | MDCR | | | | | | | | SUPPL | | | | | | + +--------+ +--------+ +---------+--------+ + +--------+ +--------+ + + | Guarantor Name | Accoun | Relation to | Date | Phone | Billing Address | | | t Type | Patient | of | | | | | | | | | | + +--------+ +--------+ + + | Mookie King | Person | Self | [birth year] | [address] | | | al/Fam | | 1955 | [phone] | [place] [address] | | | kellie | | | 0 (Home) | | + +--------+ +--------+ + + Advance Directives + + + + + | Type | Date Recorded | Patient | Explanation | | | | Workforce Investment Act Career Manager | | + + + + + | Power of | | | | | Bindery Chief | | | | + + + + + | Advance | | | | | Directive | | | | + + + + +"
--- OUTSIDE RECORDS SUMMARY | ~2019-11-29 | XMS | Encounter Summary ---
Demographics + + + | Address | [address] | | | [place] [address] | + + + | Home Phone | | + + + | Preferred Language | Unknown | + + + | Marital Status | | + + + | Religion Affiliation | Unknown | + + + | Race | Unknown | + + + | Ethnic Group | Unknown | + + + Author + + + | Author | [facility] | | | and [place] | + + + | Organization | [facility] | | | and [place] [...] Team Providers + +------+ + | Care Apprentice Pattern Maker Name | Role | Phone | + [...] | | | | [place] | [address] | | | | | [address] | [phone] | | | | | [phone] | | | +--------+ + + + [...]
--- OUTSIDE RECORDS SUMMARY | ~2019-11-29 | XMS | Encounter Summary ---
Demographics + + + | Address | [address] | | | [place] [address] | + + + | Home Phone | | + + + | Preferred Language | Unknown | + + + | Marital Status | | + + + | Uatsdin Affiliation | Unknown | + + + | Race | Unknown | + + + | Ethnic Group | Unknown | + + + Author + + + | Author | [facility] | | | and [place] | + + + | Organization | [facility] | | | and [place] [...] Team Providers + +------+ + | Care Circuit Breaker Mechanic Name | Role | Phone | + +------+ + | Edgard Echevarria MD | PCP | | + +------+ + Encounter Details +--------+ + + + + | Date | Type | Department | Care Team | Description | +--------+ + + + + | 09/16/ | Hospital | [facility] | Emeka Salamanca MD | | | 2007 | Encounter | OR PREPOST OP 747 | [address] | | | | | [facility], | [address] [place], | | | | | [place] [address] | [place] [address] | | | | | [phone] | | | | | | | [...]
--- OUTSIDE RECORDS SUMMARY | ~2019-11-29 | XMS | Encounter Summary ---
Demographics + + + | Address | [address] | | | [place] [address] | + + + | Home Phone | | + + + | Preferred Language | Unknown | + + + | Marital Status | | + + + | Yarsanism Affiliation | Unknown | + + + | Race | Unknown | + + + | Ethnic Group | Unknown | + + + Author + + + | Author | [facility] | | | and [place] | + + + | Organization | [facility] | | | and [...] Team Providers + +------+ + | Care Senior Mechanical Project Engineer Name | Role | Phone | + +------+ + | Edgard Echevarria MD | PCP | | + +------+ + Encounter Details +--------+ + + + + | Date | Type | Department | Care Team | Description | +--------+ + + + + | 05/08/ | Hospital | [facility] | Rc Anne, | | | 2003 | Encounter | MINOR PROCEDURES | [address] [facility] | | | | | [address] | [address] [place], | | | | | [place], [place] | [place] [address] | | | | | [address] | [phone] | | | | | [phone] | | | +--------+ + + + [...]
--- OUTSIDE RECORDS SUMMARY | ~2019-11-29 | XMS | Encounter Summary ---
Demographics + + + | Address | [address] | | | [place] [address] | + + + | Home Phone | | + + + | Preferred Language | Unknown | + + + | Marital Status | | + + + | Jewish Affiliation | Unknown | + + + | Race | Unknown | + + + | Ethnic Group | Unknown | + + + Author + + + | Author | [facility] | | | and [place] | + + + | Organization | [facility] | | | and [...] Providers + +------+ + | Care Director Supply Chain Name | Role | Phone | + [...] | | 2019 | Visit | UROLOGY [facility] | [address] | Dx); Spermatocele | | | | [address] | [address] [place], | | | | | [address] [place], [place] | [place] [address] | | | | | [address] | | | | | | | [...] REPAIR (R) OTHER SURGICAL HISTORY COLON SURGERY AL BIOPSY OF SKIN LESION AL THROAT SURGERY PROCEDURE UNLISTED TONSILLECTOMY AND ADENOIDECTOMY [...] staining UROLOGIC CHRONOLOGICAL HISTORY: 1989 Spermatocele repair [facility] 2002 2nd spermatocele repair 2007 3rd repair [...] adjusting First spermatocele repair around at the [facility] Seen before for a spermatocole, one on the left, one on the right, now the one on the right is back Early and September 2008 [facility] 2002 cycling -saw me then 2007 third [...] What is the preferred imaging location? Answer: [facility] ([facility]) Emeka Salamanca M.D. PCP: Edgard Echevarria [...]
--- OUTSIDE RECORDS SUMMARY | ~2019-11-29 | XMS | Encounter Summary ---
Demographics + + + | Address | [address] | | | [place] [address] | + + + | Home Phone | | + + + | Preferred Language | Unknown | + + + | Marital Status | | + + + | Tenriism Affiliation | Unknown | + + + | Race | Unknown | + + + | Ethnic Group | Unknown | + + + Author + + + | Author | [facility] | | | and [place] | + + + | Organization | [facility] | [...] Team Providers + +------+ + | Care Food And Nutrition Professor Name | Role | Phone | + +------+ + | Edgard Echevarria MD | PCP | | + +------+ + Encounter Details +--------+ + + + + | Date | Type | Department | Care Team | Description | +--------+ + + + + | 08/09/ | Emergency | [facility] | | Strain of Thoracic | | 2010 | | EM[facility]Y CENTER | | Region | | | | [address] | | | | | | [place] | | | | | | [address] | | | | | | [phone] | | | +--------+ + + + [...] Dictated: | | | 08/09/2011 04:49:34 Job: [id number] | | + + + + + [...] Dictated by: NILES LOVELACEDictated: 08/09/2011 04:49:34 Job: [id number] | |aspects of the mesentery, surrounding a [...] | |Dictated: 08/09/2011 04:49:34 | | Job: [id number] | + + documented in this encounter Visit Diagnoses + + | Diagnosis | + + | Strain of thoracic region Sprain of thoracic region | + + documented in this encounter"
--- OUTSIDE RECORDS SUMMARY | ~2019-11-29 | XMS | Encounter Summary ---
Demographics + + + | Address | [address] | | | [place] [address] | + + + | Home Phone | | + + + | Preferred Language | Unknown | + + + | Marital Status | | + + + | Episcopal Affiliation | Unknown | + + + | Race | Unknown | + + + | Ethnic Group | Unknown | + + + Author + + + | Author | [facility] | | | and [place] | + + + | Organization | [facility] | | | and [...] Team Providers + +------+ + | Care Middleware Architect Name | Role | Phone | + +------+ + | Edgard Echevarria MD | PCP | | + +------+ + Encounter Details +--------+ + + + + | Date | Type | Department | Care Team | Description | +--------+ + + + + | 05/19/ | Hospital | [facility] | Rc [place], | | | 2003 | Encounter | SYSTEM GENERIC OP | [address] | | | | | CONVERSION [address] | [address] [place], | | | | | [address] [place], [place] | [place] [address] | | | | | [address] | [phone] | | | | | [phone] | | | +--------+ + + + [...]
--- OUTSIDE RECORDS SUMMARY | ~2019-11-29 | XMS | Encounter Summary ---
Demographics + + + | Address | [address] | | | [place] [address] | + + + | Home Phone | | + + + | Preferred Language | Unknown | + + + | Marital Status | | + + + | Restorationism Affiliation | Unknown | + + + | Race | Unknown | + + + | Ethnic Group | Unknown | + + + Author + + + | Author | [facility] | | | and [place] | + + + | Organization | [facility] | | | and [...] Team Providers + +------+ + | Care Minilab Operator Name | Role | Phone | [...] | | | | [place], | [address] | | | | | [place] [address] | [phone] | | | | | [phone] | | | +--------+ + + + [...]
--- OUTSIDE RECORDS SUMMARY | ~2019-11-29 | XMS | Encounter Summary ---
Demographics + + + | Address | [address] | | | [place] [address] | + + + | Home Phone [...] | Author | [facility] | | | and Jaunana | + + + | Organization | [facility] | | | and [...] Team Providers + +------+ + | Care Supervisor Extrusion Name | Role | Phone | + [...] Sclerosis) (HCC) | | | | [place], [place] | Provider Unknown | | | | | [address] | [phone] | | | | | [phone] | | | +--------+ + + + [...] + +--------+ + + + | MRI THORACIC SPINE W | Routin | 02/14/2009 | | Results for this | | WO CONTRAST | e | 6:26 PM | | procedure are in the | | | | PDT | | results section. | + +--------+ + + + documented in this encounter Results MRI Thoracic Spine w wo Contrast (02/14/2009 6:26 PM PDT) + + | Specimen | + + | | + + + + + | Impressions | Performed At | + + + | No convincing evidence of a demyelinating process, or evidence of | | | high grade canal stenosis is seen. There are small disc protrusions | | | as described. Abnormal signal within the inferior T10, superior | | | T11, inferior T11 and superior T12 end plates with associated | | | enhancement, as well as modest abnormal signal in the discs at these | | | levels. These are most likely degenerative in origin, particularly | | | given kyphosis. None the less, a component of mild infection cannot | | | be excluded, per clinical judgment, correlation with laboratory | | | values could be considered. Dictated by: MABLE VACA | | | Dictated: 02/15/2009 10:00:25 Job: [id number] | | + + + + + + | Narrative | Performed At | + + + | MRI OF THE THORACIC SPINE WITH AND WITHOUT CONTRAST: Clinical | | | History: Paresthesias and numbness of the lower extremities, | | | headaches, concern for demyelinating process. Technique: Images | | | are obtained at 3 Ade. Multiple sequences are acquired: sagittal | | | T2, sagittal T2 fat saturated, sagittal T1, axial 2D merge, axial and | | | sagittal T1 post contrast. Comparison: None Findings: | | | There is a fairly pronounced kyphosis of the thoracic spine, with | | | approximately 52 degrees of kyphosis measured from the superior T3 to | | | the inferior T10 end plates. There is abnormal signal and | | | enhancement within the inferior T10 and superior T11, inferior T11 | | | and superior T12 end plates, with a small amount of abnormal T2 | | | signal enhancement within the T10-11 and T11-12 disc spaces. | | | Findings are most consistent with a degenerative process. A | | | component of infection cannot be completely excluded and if | | | clinically indicated, correlation with laboratory values is | | | suggested. In terms of cord signal abnormality, there is no | | | abnormal cord signal seen and no high grade canal stenosis is | | | identified at any level. No high grade foraminal stenosis is | | | identified. A portion of the thoracic aorta visualized is of | | | normal caliber. No mass lesions are identified. No adenopathy is | | | seen. In terms of degenerative change, small disc protrusions are | | | demonstrated at the right T8-9, and the mid T7-8, these do not | | | significantly compromise the canal. | | + + + + + | Procedure Note | + + | Ladarius Delacruz Conversion - 05/16/2019 9:57 PM PDT MRI OF THE THORACIC SPINE WITH AND | | WITHOUT CONTRAST: Clinical History: Paresthesias and numbness of the lower | | extremities,headaches, concern for demyelinating process. Technique: Images are | | obtained at 3 Ade. Multiple sequences areacquired: sagittal T2, sagittal T2 fat | | saturated, sagittal T1, [id number] merge, axial and sagittal T1 post contrast. Comparison: | | None Findings: There is a fairly pronounced kyphosis of the thoracic spine, | | withapproximately 52 degrees of kyphosis measured from the superior T3 tothe inferior | | T10 end plates. There is abnormal signal and enhancement within the inferior T10 | | andsuperior T11, inferior T11 and superior T12 end plates, with a smallamount of | | abnormal T2 signal enhancement within the T10-11 and [id number] spaces. Findings are | | most consistent with a degenerativeprocess. A component of infection cannot be | | completely excluded andif clinically indicated, correlation with laboratory values | | issuggested. In terms of cord signal abnormality, there is no abnormal cord signalseen | | and no high grade canal stenosis is identified at any level. Nohigh grade foraminal | | stenosis is identified. A portion of the thoracic aorta visualized is of normal caliber. | | Nomass lesions are identified. No adenopathy is seen. In terms of degenerative | | change, small disc protrusions aredemonstrated at the right T8-9, and the mid T7-8, | | these do notsignificantly compromise the canal. IMPRESSION: No convincing evidence of a | | demyelinating process, or evidence of highgrade canal stenosis is seen. There are small | | disc protrusions asdescribed. Abnormal signal within the inferior T10, superior T11, | | inferior T11and superior T12 end plates with associated enhancement, as well asmodest | | abnormal signal in the discs at these levels. These are mostlikely degenerative in | | origin, particularly given kyphosis. None theless, a component of mild infection cannot | | be excluded, per clinicaljudgment, correlation with laboratory values could be | | considered. Dictated by: [email or web address] ANGELO ALEJANDROHDictated: 02/15/2009 10:00:25 Job: [id number] | |In terms of cord signal abnormality, there is no abnormal cord signal | |seen and no high grade canal stenosis is identified at any level. No | |high grade foraminal stenosis is identified. | | | |A portion of the thoracic aorta visualized is of normal caliber. No | |mass lesions are identified. No adenopathy is seen. | | | |In terms of degenerative change, small disc protrusions are | |demonstrated at the right T8-9, and the mid T7-8, these do not | |significantly compromise the canal. | | | |IMPRESSION: | |No convincing evidence of a demyelinating process, or evidence of high | |grade canal stenosis is seen. There are small disc protrusions as | |described. | | | |Abnormal signal within the inferior T10, superior T11, inferior T11 | |and superior T12 end plates with associated enhancement, as well as | |modest abnormal signal in the discs at these levels. These are most | |likely degenerative in origin, particularly given kyphosis. None the | |less, a component of mild infection cannot be excluded, per clinical | |judgment, correlation with laboratory values could be considered. | | Dictated by: MABLE VACA | |Dictated: 02/15/2009 10:00:25 | | Job: [id number] | + + documented in this encounter Visit Diagnoses + + | Diagnosis | + + | MS (multiple sclerosis) ([facility]) Multiple sclerosis | + + documented in this encounter"
--- OUTSIDE RECORDS SUMMARY | ~2019-11-29 | XMS | Encounter Summary ---
Demographics + + + | Address | [address] | | | [place] [address] | + + + | Home Phone | | + + + | Preferred Language | Unknown | + + + | Marital Status | | + + + | Taoism Affiliation | Unknown | + + + | Race | Unknown | + + + | Ethnic Group | Unknown | + + + Author + + + | Author | [facility] | | | and Jaunana | + + + | Organization | [facility] | | | and [...] Team Providers + +------+ + | Care Chargeback Analyst Name | Role | Phone | [...] | Telephone | VALERIE AND JACQUELINE | Emeka Salamanca MD | Results | | 2019 | | URGOLOGY RICARDOALMA | [address] | | | | | [address] | [address] [place], | | | | | [place] | [place] [address] | | | | | [address] | | | | | | | [...]
--- OUTSIDE RECORDS SUMMARY | ~2019-11-29 | XMS | Clinical Summary ---
Demographics + + + | Address | [address] | | | [place] [address] | + + + | Home Phone | | + + + | Preferred Language | Unknown | + + + | Marital Status | | + + + | Spiritism Affiliation | Unknown | + + + | Race | Unknown | + + + | Ethnic Group | Unknown | + + + Author + + + | Author | [facility] | | | and Jaunana | + + + | Organization | [facility] | | | and [...] Team Providers + +------+ + | Care Power Screwdriver Operator Name | Role | Phone | [...] +--------+ +---------+--------+ | MEDICARE | MEDICA | [id number] | 07/02/20 | [phone] | | Medica | | | RE | | 18-Pre | 5 | | re | | | PART A | | sent | | | | | | AND B | | | | | | + +--------+ +--------+ +---------+--------+ | UNITED ANDORRAN | UNITED | [id number] | 07/02/20 | | | Indemn | [...] | Self | [birth year] | [address] | | | al/Fam | | 1955 | [phone] | [place] [address] | | | kellie | | | 0 (Home) | | + +--------+ +--------+ + + Advance Directives + + + + + | Type | Date Recorded | Patient | Explanation | | | | Truck Driver Flatbed | | + + + + + | Power of | | | | | Clerk [employer] | | | | + + + + + | Advance | | | | | Directive | | | | + + + + +"
--- OUTSIDE RECORDS SUMMARY | ~2019-11-29 | XMS | Encounter Summary ---
Demographics + + + | Address | [address] | | | [place] [address] | + + + | Home Phone | | + + + | Preferred Language | Unknown | + + + | Marital Status | | + + + | Adventism Affiliation | Unknown | + + + | Race | Unknown | + + + | Ethnic Group | Unknown | + + + Author + + + | Author | [facility] | | | and Jaunana | + + + | Organization | [facility] | | | and [...] Team Providers + +------+ + | Care Business Development Professional Name | Role | Phone | + +------+ + | Edgard Echevarria MD | PCP | | + +------+ + Encounter Details +--------+ + + + + | Date | Type | Department | Care Team | Description | +--------+ + + + + | 09/15/ | Hospital | [facility] | Conversion | | | 2007 | Encounter | [facility] | Transaction, | | | | | [address] | Provider Unknown | | | | | [place], [place] | [phone] | | | | | [address] | | | | | | [phone] | | | +--------+ + + + [...]
--- OUTSIDE RECORDS SUMMARY | ~2019-11-29 | XMS | Encounter Summary ---
Demographics + + + | Address | [address] | | | [place] [address] | + + + | Home Phone | | + + + | Preferred Language | Unknown | + + + | Marital Status | | + + + | Sabianist Affiliation | Unknown | + + + | Race | Unknown | + + + | Ethnic Group | Unknown | + + + Author + + + | Author | [facility] | | | and Jaunana | + + + | Organization | [facility] | | [...] Team Providers + +------+ + | Care Rug Frame Mounter Name | Role | Phone | + +------+ + | Edgard Echevarria MD | PCP | | + +------+ + Encounter Details +--------+ + + + + | Date | Type | Department | Care Team | Description | +--------+ + + + + | 08/17/ | [facility] | [facility] | Emeka Salamanca MD | Orchalgia; | | 2019 | Encounter | ULTRASOUND [address] | [address] | Spermatocele | | | | [address] | [address] [place], | | | | | [place] | [place] [address] | | | | | [address] | | | | | | [phone] | (Fax) | | +--------+ + + [...]
--- OUTSIDE RECORDS SUMMARY | ~2019-11-29 | XMS | Encounter Summary ---
Demographics + + + | Address | [address] | | | [place] [address] | + + + | Home Phone | | + + + | Preferred Language | Unknown | + + + | Marital Status | | + + + | Synagogue Affiliation | Unknown | + + + | Race | Unknown | + + + | Ethnic Group | Unknown | + + + Author + + + | Author | [facility] | | | and Jaunana | + + + | Organization | [facility] | | | and Jaunana [...] Team Providers + +------+ + | Care Filenet Admin Name | Role | Phone | + [...] Sclerosis) (HCC) | | | | [place], [place] | Provider Unknown | | | | | [address] | [phone] | | | | | [phone] | | | +--------+ + + + [...] | | | Dictated: 02/15/2009 10:00:25 Job: [id number] | | + + + + + [...] T2 fat | | saturated, sagittal T1, [id number] merge, axial and sagittal T1 post contrast. [...] T2 signal enhancement within the T10-11 and B16-12gcyb spaces. Findings are | | most consistent [...] by: [email or web address] ANGELO ALEJANDROHDictated: 02/15/2009 10:00:25 Job: [id number] | |In terms of cord signal abnormality, [...] | |Dictated: 02/15/2009 10:00:25 | | Job: [id number] | + + documented in this encounter Visit Diagnoses + + | Diagnosis | + + | MS (multiple sclerosis) ([facility]) Multiple sclerosis | + + documented in this encounter"
[~2019-11-29 04:27] MED LIST changes: +HYDROCHLOROTH12.5 MG PO; +LOSARTAN POTASS50 MG PO
[2019-11-29] MEDS ORDERED: AMOXICILLIN500 MG PO (04:58)
== END 2019-11-29 05:24 | disposition home or self-care (01) ==
LOC: ED 04:27
DX: J02.9 Acute pharyngitis, unspecified (principal); I10 Essential (primary) hypertension; Z88.7 Allergy status to serum and vaccine; Z79.899 Other long term (current) drug therapy
CPT/HCPCS: 87880; 99283

== ENCOUNTER 2021-01-24 08:38 | Emergency (ER) | payer MEDICARE, OTHER ==
[~2021-01-24] VITALS: Ht 182.9 cm; Wt 100.7 kg
[~2021-01-24 08:38] MED LIST changes: +AMOXICILLIN500 MG PO
--- OUTSIDE RECORDS SUMMARY | 2021-01-24 08:44 | XMS ---
PreManage Notification: MARY JANE WEBSTER Security Fur Dresser Events No recent Security Events currently on file CRITERIA MET - [facility] - 2 Visits in 30 Days CARE PROVIDERS There are no care providers on record at this time. [facility] has no Care Guidelines for this patient. Juan VISIT COUNT (12 MO.) 1 [facility] 1 [facility] TOTAL 4 NOTE: Visits indicate total known visits. [facility] V[facility] TR[facility] (12 MO.) 01/24/2021 08[facility] [facility] Emergency COMPLAINT: - MEDICATION ALLERGIC REACTION 01/23/2021 13:51 [facility] [place] TYPE: Emergency DIAGNOSES: - fall injury l side of face - Postconcussional syndrome [facility] DIAGNOSES: - Other symptoms and signs involving the musculoskeletal system - Numbness - Extremity Weakness - lt arm numbness, weakness - Spinal stenosis, cervical region 03/11/2020 23:09 [facility] [facility] Emergency COMPLAINT: - BLOOD PRESSURE PROBLEM DIAGNOSES: - Other long chain dyeing machine operator (current) drug therapy - Essential (primary) hypertension - Headache INPATIENT VISIT TRACKING (12 MO.) No inpatient visits to display in this time frame [id number]
[2021-01-24] MEDS ORDERED: SUMATRIPTAN SU100 MG PO (09:02)
[2021-01-24] MEDS ORDERED: HYDROCODON-ACE1 EA10 PO (09:03)
[2021-01-24] MEDS ORDERED: GRISEOFULVIN500 MG PO (09:03)
[2021-01-24] MEDS ORDERED: PREDNISONE20 MG PO (09:37)
== END 2021-01-24 09:50 | disposition home or self-care (01) ==
LOC: ED 08:38
DX: H93.8X1 Other specified disorders of right ear (principal); T39.315A Adverse effect of propionic acid derivatives, initial encounter
CPT/HCPCS: 99283; J7512

== ENCOUNTER 2022-05-14 09:13 | Emergency (ER) | payer MEDICARE, OTHER ==
[~2022-05-14] VITALS: Ht 182.9 cm; Wt 98.9 kg
[~2022-05-14 09:13] MED LIST changes: +GRISEOFULVIN500 MG PO; +HYDROCODON-ACE1 EA10 PO; +PREDNISONE20 MG PO; +SUMATRIPTAN SU100 MG PO
[2022-05-14] MEDS ORDERED: COREG3.125 MG PO (09:32)
== END 2022-05-14 10:26 | disposition home or self-care (01) ==
LOC: ED 09:13
DX: M25.562 Pain in left knee (principal); I10 Essential (primary) hypertension; Z88.7 Allergy status to serum and vaccine; Z88.6 Allergy status to analgesic agent; Z88.8 Allergy status to other drugs, medicaments and biological substances; Z79.899 Other long term (current) drug therapy
CPT/HCPCS: 73560; 99283-25

== ENCOUNTER 2023-04-25 18:32 | Emergency (ER) | payer MEDICARE, OTHER ==
[~2023-04-25] VITALS: Ht 182.9 cm; Wt 105.6 kg
[~2023-04-25 18:32] MED LIST changes: +CHOLESTYRAMINE378 GM PO; +COREG3.125 MG PO; +LOMOTIL TABLET1 EACH PO
--- OUTSIDE RECORDS SUMMARY | 2023-04-25 18:34 | XMS ---
PreManage Notification: MARY JANE WEBSTER Security Marketing Services Rep Events No recent Security Events currently on file CRITERIA MET - PDMP CARE PROVIDERS TULIO WISDOM Physician Endband Sizer 01/24/2021-Current PHONE: [phone] [facility] has no Care Guidelines for this patient. E.DLouann VISIT COUNT (12 MO.) 1 Lonnie Thomas [facility] [place] TOTAL 4 NOTE: Visits indicate total known visits. ED/UCC VISIT TRACKING (12 MO.) 04/25/2023 18:32 [facility] [place] TYPE: Emergency COMPLAINT: - ALTERED LOC 11/19/2022 05:58 [facility] [place] TYPE: Emergency COMPLAINT: - Back Pain_lower back extreme pain - LOW BACK PAIN, UNSPECIFIED DIAGNOSES: 0. Low back pain, unspecified 1. Radiculopathy, lumbar region 3. Other chronic pain 4. Other watermaster (current) drug therapy 10/10/2022 16:25 [facility] [place] TYPE: Emergency COMPLAINT: - DIARRHEA DIAGNOSES: - Allergy status to analgesic agent - Allergy status to other drugs, medicaments and biological substances - Allergy status to serum and vaccine - Diarrhea, unspecified - Essential (primary) hypertension - Other watermaster (current) drug therapy 05/14/2022 09:13 [facility] [place] TYPE: Emergency COMPLAINT: - L KNEE PAIN DIAGNOSES: - Allergy status to analgesic agent - Allergy status to other drugs, medicaments and biological substances - Allergy status to serum and vaccine - Essential (primary) hypertension - Other watermaster (current) drug therapy - Pain in left knee INPATIENT VISIT TRACKING (12 MO.) No inpatient visits to display in this time frame [email or web address]
[2023-04-25 21:06] VITALS: BP 138/95
--- NOTE | 2023-04-25 21:25 | EKG ---
[facility] [address] [place], [place] [address] Signed Sinus rhythm with 1st degree AV block Left axis deviation Moderate voltage criteria for LVH, may be normal variant ( R in aVL , Ilan product ) Septal infarct , age undetermined Abnormal ECG No previous ECGs available Confirmed by SALIMA WHITEHEAD MD ([id number]) on 04/25/2023 9:24:53 PM Electronically Signed By: SALIMA WHITEHEAD MD 04/25/232124 PATIENT NAME: MARY JANE WEBSTER Electrocardiogram DATE OF : 51 PHYSICIAN: SALIMA WHITEHEAD MD REPORT #: [id number] REPORT IS CONFIDENTIAL AND NOT TO BE RELEASED WITHOUT AUTHORIZATION
== END 2023-04-25 21:07 | disposition home or self-care (01) ==
LOC: ED 18:32
DX: G45.4 Transient global amnesia (principal); I10 Essential (primary) hypertension; Z88.8 Allergy status to other drugs, medicaments and biological substances; Z88.6 Allergy status to analgesic agent; Z88.7 Allergy status to serum and vaccine; Z79.899 Other long term (current) drug therapy
CPT/HCPCS: 36415; 70450; 71045; 80053; 81003; 85025; 93005; 93010; 99285-25; G0480